=== PATIENT | male | born 1955 | race Caucasian/White ===

== ENCOUNTER 2018-01-25 16:15 | Emergency (ER) | payer OTHER ==
[2018-01-25 16:20] VITALS: BMI 34.5
[2018-01-25] MEDS ORDERED: ADENOCARD IVP STA (16:42)
--- NOTE | 2018-01-25 17:00 | ED.PDOC ---
General ED Provider: Dr. LISA NEGRETE Chief Complaint: Chest Pain Stated Complaint: CC: Chest Pain. HPI: 62 y/o cauc male pt presented to ER by Private Vehicle. states they had arrived in [place] earlier this afternoon after traveling from [facility] to [place]. [facility] and after going into [facility], he developed severe chest tighness and strange sensation in his chest. brought him to the ER and upon arrival once put on monitor discovered he was in narrow complex SVT rate 200-210. Evaluation and treatment initiated. Time Seen by Physician: 16:20 Mode of Arrival: Walk-In Information Source: Patient, Family Exam Limitations: No limitations Nursing and Triage Documentation Reviewed and Agree: Yes Reviewed sepsis parameters & appropriate labs ordered?: Yes System Inflammatory Response Syndrome: Not Applicable Sepsis Protocol: For patient's 13 years and over: Temp is 96.8 and below OR 101 and greater Pulse >90 BPM Resp >20/minute Acutely Altered Mental Status Are patient's symptoms suggestive of a new infection, such as: -Pneumonia -Skin, Soft Tissue -Endocarditis -UTI -Bone, Joint Infection -Implantable Device -Acute Abdominal Infection -Wound Infection -Meningitis -Blood Stream Catheter Infection -Unknown Cardiovascular Complaint Exam - Chest Pain Complaint/Exam Onset: Sudden Duration: 1 hr Symptoms Are: Still present Timing: Constant (Heart racing -telemetry-SVT 200-210) Initial Severity: Severe Current Severity: Moderate Location: Reports: Diffuse, Midsternal, Lower sternal Pain Radiates: Reports: Back Character: Reports: Dull, Aching, Pressure, Squeezing Alleviating: Reports: None Associated Signs and Symptoms: Reports: Nausea, Back pain, Dizziness. Denies: Diaphoresis, Vomiting, Fever, Palpitations, Cough, Hemoptysis, Abdominal pain, Short of air, Calf pain, Calf swelling Related History: Reports: Current Raúl Inhibitors, Current Diuretic. Denies: Similar episode Related Surgical History: Reports: None History of Healthcare-Acquired Pneumonia: Reports: No AMI/ACS Risk Factors: Reports: None TAD Risk Factors: Reports: Hypertension Pulmonary Embolism Risk Factors: Reports: None Prior Care for this Complaint: No Recent Stress Test: No Recent Echo/LV Function: No JVD Present: No Subcutaneous Emphysema Present: No Diminshed Breath Sounds: No Reproducible Chest Wall Pain: No Bilateral Pulses Present: Yes Unequal Pulses Noted: No If Risk Factors for AMI/ACS Consider: EKG, Cardiac Enzymes, Oxygen Differential Diagnoses: Other (SVT) Quality Indicators For Acute NE or Cardiac Chest Pain: EKG in 10min. Quality Indicator For Non-Traumatic Chest Pain/Syncope: EKG Performed Review of Systems - Review Of Systems Constitutional: Reports: No symptoms Eyes: Reports: No symptoms Ears, Nose, Mouth, Throat: Reports: No symptoms Respiratory: Reports: No symptoms Cardiac: Reports: Chest pain GI: Reports: No symptoms : Reports: No symptoms Musculoskeletal: Reports: No symptoms Skin: Reports: No symptoms Neurological: Reports: No symptoms Endocrine: Reports: No symptoms Hematologic/Lymphatic: Reports: No symptoms All Other Systems: Reviewed and Negative Past Medical History - Past Medical History Previously Healthy: Yes Endocrine: Reports: None Cardiovascular: Reports: None, Hypertension Respiratory: Reports: None Hematological: Reports: None Gastrointestinal: Reports: None Genitourinary: Reports: None Neuro/Psych: Reports: None Musculoskeletal: Reports: None Cancer: Reports: None - Surgical History General Surgical History: Reports: None - Family History Family History: Reports: None - Social History Smoking Status: Current every day smoker Hx Substance Use: No Alcohol Screening: Occasionally Physical Exam - Physical Exam Appearance: Well-appearing, No pain distress, Well-nourished Ill-appearing: Moderate Pain Distress: None Eyes: EMILIANO, EOMI, Conjunctiva clear ENT: Ears normal, Nose normal, Oropharynx normal Neck: Supple (No JVD. Neg HJR) Respiratory: Airway patent, Breath sounds clear, Breath sounds equal, Respirations nonlabored Cardiovascular: RRR, Pulses normal, No rub, No murmur, Tachycardia (SVT) GI/: Soft, Nontender, No masses, Bowel sounds normal, No Organomegaly Musculoskeletal: Normal strength, ROM intact, No edema, No calf tenderness Skin: Warm, Dry, Normal color Neurological: Sensation intact, Motor intact, Reflexes intact, Cranial nerves intact, Alert, Oriented Psychiatric: Affect appropriate, Mood appropriate Interpretation - Radiology Interpretation Radiology Interpretation By: Radiologist Radiology Results: No acute changes Exam Interpreted: Portable CXR Procedures - Additional Procedures Additional Procedures: Other (Administered Adenosine) Critical Care Note - Critical Care Note Total Time (mins): 60 (Eval/Treatment/interp lab/consult Cariology/arrange transfer to [facility]/Explain to patient and -agree) Comments: Discussed case with Dr Portillo intrusion analyst oncall at [facility] who agrees to accept patient in transfer. Explained condition to patient and .Agree with transfer. Course - Course Hematology/Chemistry: 01/25/18 16:10 01/25/18 16:10 Orders, Labs, Meds: Lab Review 01/25/18 01/25/18 01/25/18 16:10 16:10 17:04 WBC 8.84 RBC 4.60 L Hgb 15.3 Hct 42.0 MCV 91.3 MCH 33.3 H MCHC 36.4 H RDW Coeff of Braxton 13.4 Plt Count 245 Immature Gran % (Auto) 0.3 Neut % (Auto) 58.1 Lymph % (Auto) 31.2 [place] % (Auto) 9.7 Eos % (Auto) 0.2 Baso % (Auto) 0.5 Immature Gran # (Auto) 0.0 Neut # (Auto) 5.1 Lymph # (Auto) 2.8 [place] # (Auto) 0.9 Eos # (Auto) 0.0 Baso # (Auto) 0.0 Sodium 140 Potassium 3.5 Chloride 103 Carbon Dioxide 24 Anion Gap 16.5 BUN 17 Creatinine 1.30 H Estimated GFR (MDRD) 56.00 BUN/Creatinine Ratio 13.07 Glucose 132 H Calcium 9.8 Total Bilirubin 0.6 AST 37 ALT 32 Alkaline Phosphatase 75 Troponin I < 0.0100 Total Protein 8.3 H Albumin 4.7 Globulin 3.6 Albumin/Globulin Ratio 1.31 Urine Color Urine Clarity Urine pH Ur Specific [place] Urine Protein Urine Glucose (UA) Urine Ketones Urine Blood Urine Nitrite Urine Bilirubin Urine Urobilinogen Ur Leukocyte Esterase Urine Microscopic RBC Ur Squamous Epith Cells Urine Opiates Screen Negative Ur Oxycodone Screen Negative Urine Methadone Screen Negative Ur Propoxyphene Screen Negative Ur Barbiturates Screen Negative U Tricyclic Antidepress Negative Ur Phencyclidine Scrn Negative Ur Amphetamine Screen Negative U Methamphetamines Scrn Negative U Benzodiazepines Scrn Negative Urine Cocaine Screen Negative U Cannabinoids Screen Negative 01/25/18 17:04 WBC RBC Hgb Hct MCV MCH MCHC RDW Coeff of Braxton Plt Count Immature Gran % (Auto) Neut % (Auto) Lymph % (Auto) [place] % (Auto) Eos % (Auto) Baso % (Auto) Immature Gran # (Auto) Neut # (Auto) Lymph # (Auto) [place] # (Auto) Eos # (Auto) Baso # (Auto) Sodium Potassium Chloride Carbon Dioxide Anion Gap BUN Creatinine Estimated GFR (MDRD) BUN/Creatinine Ratio Glucose Calcium Total Bilirubin AST ALT Alkaline Phosphatase Troponin I Total Protein Albumin Globulin Albumin/Globulin Ratio Urine Color Yellow Urine Clarity Clear Urine pH 7.0 Ur Specific Ennice 1.010 Urine Protein Negative Urine Glucose (UA) Negative Urine Ketones Trace Urine Blood Trace-intact Urine Nitrite Negative Urine Bilirubin Negative Urine Urobilinogen 0.2 Ur Leukocyte Esterase Negative Urine Microscopic RBC 0-2 Ur Squamous Epith Cells Not present Urine Opiates Screen Ur Oxycodone Screen Urine Methadone Screen Ur Propoxyphene Screen Ur Barbiturates Screen U Tricyclic Antidepress Ur Phencyclidine Scrn Ur Amphetamine Screen U Methamphetamines Scrn U Benzodiazepines Scrn Urine Cocaine Screen U Cannabinoids Screen Orders Category Date Time Status EKG-(ED ONLY) Stat CARDIO 01/25/18 16:36 Completed EKG-(ED ONLY) Stat CARDIO 01/25/18 16:37 Completed CBC W/ AUTO DIFF Stat LAB 01/25/18 16:10 Completed CMP [COMPREHENSIVE METABOLIC PANEL] Stat LAB 01/25/18 16:10 Completed TROPONIN I Stat LAB 01/25/18 16:10 Completed UA [URINALYSIS C & S IF INDICATED] Stat LAB 01/25/18 17:04 Completed URINE DRUG SCREEN (RAPID FOR ED) [DRUG SCREEN, URINE, LAB 01/25/18 17:04 Completed RAPID] Stat Adenosine [Adenocard] MEDS 01/25/18 16:42 Discontinued 6 mg IVP ONCE STA CHEST, 1V AP ONLY Stat RADS 01/25/18 16:53 Completed Medications Discontinued Medications Generic Name Dose Route Start Last Admin Trade Name Freq PRN Reason Stop Dose Admin Adenosine 6 mg 01/25/18 16:42 01/25/18 16:25 Adenocard IVP 01/25/18 16:43 6 mg ONCE STA Administration Vital Signs: Temp Pulse Resp BP Pulse Ox 01/25/18 16:16 99.1 F 199 H 24 116/84 95 MELE Risk Score MELE Risk Score: Risk Score Odds of by 30D 0 0.1 (0.1-0.2) 1 0.3 (0.2-0.3) 2 0.4 (0.3-0.5) 3 0.7 (0.6-0.9) 4 1.2 (1.0-1.5) 5 2.2 (1.9-2.6) 6 3.0 (2.5-3.6) 7 4.8 (3.8-6.1) Departure - Departure Time of Disposition: 18:40 Disposition: TSF SHORT-TRM HOSP Discharge Problem: Supraventricular tachycardia Instructions: Supraventricular Tachycardia (ED) Condition: Good Pt referred to PMD for follow-up: Yes (Need to follw up with PCP after returning to [place]) IPMP verified?: No Additional Instructions: Follow directions of consulting intrusion analyst Allergies/Adverse Reactions: Allergies No Known Allergies Allergy (Unverified 01/25/18 16:20) Home Medications: Ambulatory Orders Amitriptyline HCl 25 mg PO DAILY 01/25/18 Hydrochlorothiazide 12.5 mg PO DAILY 01/25/18 Lisinopril [Zestril] 5 mg PO DAILY 01/25/18 Transfer Form Completed: Yes Disposition Discussed With: Patient, Family
--- NOTE | 2018-01-25 17:32 | DI ---
EXAM: Single view of the chest. History: Chest pain, cardiac arrhythmia Comparison: None available. Findings: Heart size is normal. Prominent contour of the ascending aorta could be accentuated by th e lordotic projection. No focal consolidation. No appreciable pleural fluid and no pneumothorax. No acute osseous abnormalities. Left shoulder arthroplasty. Impression: 1. No evidence for pneumonia. 2. Prominent contour of the ascending aorta.
[2018-01-25 18:35] VITALS: BP 148/112; TEMP 97.5
== END 2018-01-25 18:52 | disposition short-term general hospital (02) ==
LOC: ED 16:15
DX: I47.1 Supraventricular tachycardia (principal); R07.9 Chest pain, unspecified; I10 Essential (primary) hypertension; F17.210 Nicotine dependence, cigarettes, uncomplicated
CPT/HCPCS: 36415; 80053; 80306; 81001; 84484; 85025; 93005; 93010; 96374; 99285